=== PATIENT | male | born 1925 | race Caucasian/White ===

== ENCOUNTER → 2016-03-28 | Outpatient (CLI) | payer MEDICARE, BC, OTHER ==
[~2016-03-28] MED LIST: AMIODARONE HYD200 MG PO; ATORVASTATIN CA40 MG PO; DONEPEZIL HCL10 MG PO; ELIQUIS2.5 MG PO; LEVOTHYROXINE0.05 M2 PO; LOSARTAN POTASS50 MG PO
--- NOTE | 2016-03-28 11:25 | RADIOLOGY REPORT PS360 ---
CHEST(2 VIEWS-NOT PORTABLE) HISTORY: Atrial fibrillation AFIB COMPARISON: 01/12/2016 FINDINGS: Cardiac pacemaker device remains in place. The heart size is unremarkable. There is elevated left hemidiaphragm with atelectatic change in the left lung base. No lobar consolidation or collapse is evident. There is ankylosis of the thoracic spine. IMPRESSION: 1. No change with no acute finding. 2. Cardiac pacemaker device present with elevated left hemidiaphragm and left basilar atelectasis
== END ==
LOC: LAB 09:35
DX: I48.91 Unspecified atrial fibrillation (principal)